=== PATIENT | female | born 1980 | race Caucasian/White ===

== ENCOUNTER 2016-07-20 02:21 | Emergency (ER) | payer OTHER | END 2016-07-20 06:24 | disposition home or self-care (01) | LOC: ER1 02:21 | DX: S16.1XXA Strain of muscle, fascia and tendon at neck level, initial encounter (principal); M51.34 Other intervertebral disc degeneration, thoracic region; F17.210 Nicotine dependence, cigarettes, uncomplicated; Z88.5 Allergy status to narcotic agent; Z90.49 Acquired absence of other specified parts of digestive tract; W18.39XA Other fall on same level, initial encounter; Y92.009 Unspecified place in unspecified non-institutional (private) residence as the place of occurrence of the external cause | CPT/HCPCS: 72070; 72100; 72125; 72128; 99284 ==

== ENCOUNTER 2020-04-21 05:41 | Emergency (ER) | payer OTHER ==
[~2020-04-21 05:41] MED LIST: BACTRIM DS TAB1 EACH PO; CEFUROXIME500 MG PO; FLEXERIL 10 MG10 MG PO; KEFLEX CAP 500500 MG PO; MEDROL4 MG PO; NAPROSYN500 MG PO; TESSALON PERLE100 MG PO; VENTOLIN HFA 66.7 GM INH
[2020-04-21 06:36] LABS: HEMOGLOBIN 12.3 gm/dl (12.3-15.3); RED BLOOD COUNT 4.06 M/UL (4.00-5.10); WHITE BLOOD COUNT 8.3 K/UL (4.5-11.0)
[2020-04-21 06:49] LABS: BUN/CREATININE RATIO 12 (0-10)
== END 2020-04-21 07:04 | disposition left against medical advice (07) ==
LOC: ER1 05:41
PROVIDERS: Emergency Medicine
DX: R10.32 Left lower quadrant pain (principal); F17.210 Nicotine dependence, cigarettes, uncomplicated; Z90.49 Acquired absence of other specified parts of digestive tract
CPT/HCPCS: 71045; 80053; 84484; 84703; 85025; 93005; 96374; 96375; 99284; J2270; Q9967

== ENCOUNTER → 2020-09-23 | Outpatient (CLI) | payer OTHER | LOC: KOH-I 15:35 | DX: M51.16 Intervertebral disc disorders with radiculopathy, lumbar region (principal); R20.2 Paresthesia of skin; R06.00 Dyspnea, unspecified; R53.82 Chronic fatigue, unspecified; R73.9 Hyperglycemia, unspecified; M47.26 Other spondylosis with radiculopathy, lumbar region | CPT/HCPCS: 72070; 72100 ==